=== PATIENT | male | born 1995 | race Asian ===

== ENCOUNTER 2018-02-27 22:06 | Emergency (ER) | payer OTHER ==
[~2018-02-27] VITALS: Ht 188 cm; Wt 74.8 kg
[2018-02-27 23:04] VITALS: BP 134/89; TEMP 97.7
== END 2018-02-27 23:06 | disposition home or self-care (01) ==
LOC: ED 22:06
DX: T78.1XXA Other adverse food reactions, not elsewhere classified, initial encounter (principal)
CPT/HCPCS: 93005; 99283